=== PATIENT | male | born 1990 | race African-American/Black ===

== ENCOUNTER 2018-01-15 15:25 | Emergency (ER) | payer OTHER ==
[~2018-01-15] VITALS: Ht 180.3 cm; Wt 79.1 kg
[2018-01-15 15:30] VITALS: BP 140/92
[2018-01-15] MEDS ORDERED: KETOROLAC TROMETHAMINE 10 MG TABLET PO ONE (16:15)
== END 2018-01-15 17:00 | disposition home or self-care (01) ==
LOC: EMS 15:26
DX: S29.012A Strain of muscle and tendon of back wall of thorax, initial encounter (principal); F17.200 Nicotine dependence, unspecified, uncomplicated; X50.0XXA Overexertion from strenuous movement or load, initial encounter; Y93.89 Activity, other specified; Y92.69 Other specified industrial and construction area as the place of occurrence of the external cause; Y99.0 Civilian activity done for income or pay
CPT/HCPCS: 99282